=== PATIENT | male | born 1990 | race Caucasian/White ===

== ENCOUNTER 2017-01-06 22:21 | Emergency (ER) | payer BC ==
[~2017-01-06] VITALS: Ht 180.3 cm; Wt 79.4 kg
[2017-01-06 22:24] VITALS: BP 131/66
[2017-01-06] MEDS ORDERED: TDAP [DIPH/PERTUSSIS/TET] 0.5 ML VIAL IM ONE ×2 (22:47→23:00)
== END 2017-01-06 22:58 | disposition home or self-care (01) ==
LOC: ER 22:23
DX: S09.90XA Unspecified injury of head, initial encounter (principal); Z23 Encounter for immunization; Z88.0 Allergy status to penicillin; Z88.8 Allergy status to other drugs, medicaments and biological substances; W01.198A Fall on same level from slipping, tripping and stumbling with subsequent striking against other object, initial encounter; Y93.89 Activity, other specified; Y92.89 Other specified places as the place of occurrence of the external cause; Y99.9 Unspecified external cause status
CPT/HCPCS: 12001; 90471; 90715; 99283; A4606; A6402; Z7610

== ENCOUNTER 2017-01-10 23:09 | Emergency (ER) | payer BC ==
[~2017-01-10] VITALS: Ht 182.9 cm; Wt 79.4 kg
[2017-01-10 23:14] VITALS: BP 122/67
== END 2017-01-10 23:24 | disposition home or self-care (01) ==
LOC: ER 23:12
DX: S01.01XD Laceration without foreign body of scalp, subsequent encounter (principal); Z88.0 Allergy status to penicillin; Z88.8 Allergy status to other drugs, medicaments and biological substances
CPT/HCPCS: A4606; Z7502; Z7610

== ENCOUNTER 2017-01-13 22:24 | Emergency (ER) | payer BC ==
[~2017-01-13] VITALS: Ht 177.8 cm; Wt 63.5 kg
[2017-01-13 22:26] VITALS: BP 138/80
== END 2017-01-13 23:05 | disposition home or self-care (01) ==
LOC: ER 22:27
DX: S01.00XD Unspecified open wound of scalp, subsequent encounter (principal); Z88.0 Allergy status to penicillin; Z88.8 Allergy status to other drugs, medicaments and biological substances
CPT/HCPCS: 99281; A4606; Z7610; Z7502